=== PATIENT | male | born 1965 | race Caucasian/White ===

== ENCOUNTER 2019-08-26 07:32 | Outpatient (CLI) | payer BC ==
--- NOTE | 2019-08-26 09:28 | MRI ---
MRI LEFT SHOULDER WITHOUT CONTRAST: HISTORY: Impingement syndrome of left shoulder, M75.42. COMPARISON: None. FINDINGS: Biceps tendon: The extraarticular biceps tendon is highly tendinotic. There is subluxation through tears of the superior glenohumeral ligament and carpal humeral ligamentous portions of the biceps pul lissy as well as deep undersurface fiber partial tearing of the subscapularis tendon. The intraarticular tendon is mildly tendinotic. Labrum: There is maceration of the posterior inferior labrum. There is intrasubstance tear throughout the an terior inferior, inferior, posterior inferior, posterior, and posterior superior labrum. There is bl unting and volume loss of the superior labrum and substance tear. Rotator cuff: Very high-grade partial articular surface tear, anterior 8 mm supraspinatus tendon at the footprint, 80-90% thickness. This tear propagates into the myotendinous junction while the remainder of the sup raspinatus tendon with interstitial-type delamination propagating to the infraspinatus tendon. The i nfraspinatus tendon beside the interstitial delamination does not appear to have a bursal articular s urface component. There is near-complete rupture of the superior 10-15% fibers of the subscapularis tendon which is mac erated. The caudal fibers are intact. Muscles: There is no significant muscle atrophy. No edema. BONES: There is moderate degenerative disease of the acromioclavicular joints. There is normal glenoid vers ion. There is a posterior superior glenoid osteophyte with subcortical cyst. Large volume sclerosis and osteophyte formation of the posterior of the sphenoid rim. Soft tissues: Moderate subacromial subdeltoid bursa effusion. IMPRESSION: 1. Circumferential intrasubstance labral tear with posterior labral maceration. There is associated posterior glenoid osteophyte formation with subcortical cyst and sclerosis. 2. Mild chondral fraying of the posterior glenoid without any full-thickness fissure is appreciated. 3. High-grade 80-90% articular surface partial tearing of the anterior 8 mm-1 cm supraspinatus tendo n at the footprint with propagation along the posterior fibers supraspinatus tendon with an interstit ial oblique course extending to the anterior fibers of infraspinatus tendon. The infraspinatus tendo n has only an interstitial component without bursal or articular surface involvement. 4. High-grade tearing and partial rupture of the superior 15-20% fibers subscapularis tendon from th e footprint with intact caudal fibers. 5. A reactive subacromial subdeltoid bursa effusion. This could be due to leaking of fluid from the glenohumeral joint through a small full-thickness perforation of the anterior fibers supraspinatus t endon. POS: HOME
== END 2019-08-26 07:33 | disposition home or self-care (01) ==
LOC: TBSIIMAG 07:32
PROVIDERS: ATTEND Orthopaedic Surgery
DX: M75.42 Impingement syndrome of left shoulder (principal); S43.402A Unspecified sprain of left shoulder joint, initial encounter; M25.712 Osteophyte, left shoulder; M25.812 Other specified joint disorders, left shoulder; S46.812A Strain of other muscles, fascia and tendons at shoulder and upper arm level, left arm, initial encounter; M25.412 Effusion, left shoulder

== ENCOUNTER 2019-09-30 10:10 | Outpatient (CLI) | payer BC, OTHER ==
[2019-09-30 16:14] LABS: #Basophils 0.1 thou/uL (0.0-0.2); #Eosinphils 0.2 thou/uL (0.0-0.7); #Lymphocytes 3.1 thou/uL (1.20-3.40); #Monocytes 0.8 thou/uL (0.11-0.59); #Neutrophils 4.1 thou/uL (1.40-6.50); %Basophils 1.1 % (0.0-1.0); %Eosinophils 1.9 % (0.0-10.0); %Lymphocytes 37.5 % (21.0-51.0); %Neutrophils 49.5 % (42.0-75.0); Hemoglobin 15.8 g/dL (14.0-18.0); Mean Corpuscular HGB CONC 33.7 g/dL (32.0-36.0); Mean Corpuscular Hemoglobin 29.5 pg (27.0-31.0); Mean Corpuscular Volume 87.5 fL (78.0-98.0); Platelet Count 246 thou/uL (130-400); RBC Distribution Width 11.7 % (11.5-14.5); Red Blood Cell (RBC) Count 5.34 mill/uL (4.70-6.10); White Blood Cell (WBC) Count 8.4 thou/uL (4.8-10.8)
[2019-09-30 16:36] LABS: Anion Gap 15 mmol/L (10-20); BUN (Urea Nitrogen) 17 mg/dL (8.4-25.7); Calc. Creatinine Clearance 0 mL/min (70-130); Calcium 9.3 mg/dL (7.8-10.44); Carbon Dioxide 23 mmol/L (22-29); Chloride 103 mmol/L (98-107); Estimated GFR-MDRD 71; Glucose 251 mg/dL (70-105); Sodium 137 mmol/L (136-145)
[2019-10-01 10:10] LABS: SARS-CoV-2 MS2 Positive; SARS-CoV-2 N Gene Negative; SARS-CoV-2 S Gene Negative; SARS-CoV-2 orf1ab Negative
--- NOTE | 2019-10-01 12:47 | EKG ---
Test Reason : Blood Pressure : / mmHG Vent. Rate : 071 BPM Atrial Rate : 071 BPM P-R Int : 136 ms QRS Dur : 084 ms QT Int : 366 ms P-R-T Axes : 022 041 -02 degrees QTc Int : 397 ms Normal sinus rhythm Normal ECG Confirmed by DR. Ashley MCGINNIS ([id number]) on 10/01/2019 12:46:44 PM Referred By: IERO Confirmed By:DR. Ashley MCGINNIS
== END 2019-09-30 10:11 | disposition home or self-care (01) ==
LOC: LABBT 10:10
PROVIDERS: ATTEND Orthopaedic Surgery
DX: Z01.818 Encounter for other preprocedural examination (principal); Z11.59 Encounter for screening for other viral diseases; M75.102 Unspecified rotator cuff tear or rupture of left shoulder, not specified as traumatic
CPT/HCPCS: 80048; 85025; 87635; 93005; 93010; U0003

== ENCOUNTER 2019-10-02 07:34 | Day surgery (SDC) | payer BC ==
[2019-09-30 15:40] VITALS: BMI 35.2
[2019-10-02] MEDS ORDERED: Midazolam HCl 2 mg/2 ml Vial ONE (08:10)
[2019-10-02] MEDS ORDERED: Fentanyl 100 MCG/2 ML VIAL ONE ×2 (08:10→10:16)
[2019-10-02] MEDS ORDERED: Lidocaine 1% w/Epinephrine 1:100K 20 ML VIAL ONE (10:49)
[2019-10-02] MEDS ORDERED: Ketorolac Tromethamine 30 MG/ML VIAL ONE (11:27)
[2019-10-02] MEDS ORDERED: Rocuronium Bromide 10 MG/ML (10ML VIAL) ONE (11:27)
[2019-10-02] MEDS ORDERED: Ropivacaine 0.5% HCl/PF (150 MG/30 ML VIAL) ONE (11:27)
[2019-10-02] MEDS ORDERED: Metoclopramide HCl 10 MG/2 ML VIAL ONE (11:27)
[2019-10-02] MEDS ORDERED: Lidocaine 1% PF 5 ML VIAL ONE (11:27)
[2019-10-02] MEDS ORDERED: Succinylcholine Chloride 20 MG/ML 10 ml SYRINGE FS ONE (11:27)
[2019-10-02] MEDS ORDERED: Ondansetron PF 4 MG/2 ML Vial ONE (11:27)
[2019-10-02] MEDS ORDERED: PROPOFOL 200 MG/20 ML VIAL ONE (11:27)
[2019-10-02] MEDS ORDERED: Fentanyl 100 MCG/2 ML VIAL IV PRN (12:42)
[2019-10-02] MEDS ORDERED: Ropivacaine 0.2% 550 ML 550 ML NERVE BLCK SCH (12:42)
[2019-10-02] MEDS ORDERED: Zolpidem Tartrate 5 MG TAB PO PRN (12:42)
[2019-10-02] MEDS ORDERED: Ondansetron PF 4 MG/2 ML Vial IVP PRN (12:42)
[2019-10-02] MEDS ORDERED: Promethazine HCl 25 MG/ML VIAL IM PRN (12:42)
[2019-10-02] MEDS ORDERED: Acetaminophen 325 MG TAB PO PRN (12:42)
--- NOTE | 2019-10-03 09:19 | OP ---
DATE OF PROCEDURE: 10/02/2019 PREOPERATIVE DIAGNOSES: 1. Left shoulder with superior labral tear going up into the biceps leading to biceps tendon tearing as well as instability. 2. Rotator cuff tear. POSTOPERATIVE DIAGNOSES: 1. Left shoulder with superior labral tear going up into the biceps leading to biceps tendon tearing as well as instability. 2. Rotator cuff tear. PROCEDURES PERFORMED: 1. Left shoulder arthroscopy with arthroscopic rotator cuff repair. 2. Left shoulder open biceps tenodesis. TELEPHONE EXCHANGE OPERATOR: Luis Saini PA-C ESTIMATED BLOOD LOSS: Around 30 mL. COMPLICATIONS: None. ANESTHESIA: He had general anesthetic. He also had a preoperative block. IMPLANTS: On the shoulder, we used a triple-loaded titanium rotator cuff anchor followed by a 4.75 BioComposite SwiveLock for double row cuff repair. We used a 7 x 23 BioComposite Bio-Tenodesis screw for biceps tenodesis. DISPOSITION: He did go to recovery room in stable condition. INDICATIONS: Mr. Pepe is an active 54-year-old male, who has been having problems with the left shoulder for quite some time. MRI found him to have a significant labral tear leading to biceps tendon tearing and instability as well as a rotator cuff tear. At this time, he opted to have shoulder surgery. DESCRIPTION OF PROCEDURE: After all appropriate consent forms were explained and signed, he was taken to the operative room and at this time was given general anesthetic. Once the level of anesthesia was appropriate, he was rolled into the right lateral decubitus position with all bony prominences well padded. Axillary roll was placed in the right axilla and the garcia bag was inflated to hold in this position. The arm was then taken through full range of motion and suspended with 15 pounds in standard arthroscopic fashion. The left shoulder and upper extremity were then prepped and draped in standard surgical fashion. The bony anatomical landmarks were then drawn out and the subacromial space was infiltrated with lidocaine with epinephrine. Posterior portal was then established. Scope was placed into the shoulder joint. Anterior working portal was then made using a needle localization technique. Diagnostic arthroscopy commenced in the glenohumeral joint. The articular surface of the humeral head and glenoid were overall in good condition. The patient did have some significant labral tearing including a large chunk of the superior labrum right at the biceps insertion point that had flipped on its hinge anteriorly and looked like another piece of floating tissue in the anterior shoulder just in front of the anterior labrum. The biceps tendon itself was torn approximately 30% of the way through the tendon, but on pulling the tendon into the joint, there was some good tendon as soon as the long head of the biceps left the shoulder joint region. Therefore, it was decided to perform an open biceps tenodesis. The superior labrum and posterior labrum were also found to be degenerative. Shaver was introduced to debride everything at this time. There was some significant synovitic changes superior to the superior labrum as well as the biceps and brisk venous bleeding was coagulated with the SERFAS energy at this time. We did also find the rotator cuff tear and debrided it from its anterior surface. There were no loose bodies in the axillary pouch. Subscapularis was found to be intact. At this time, an 18-gauge needle was used to coates the biceps tendon and we placed a stitch through it. The arthroscopic scissors were used to remove the tendon off the superior labrum. This area was then debrided with a shaver one last time. At this time, scope was removed and repositioned in subacromial space. Lateral working portal was made. A PassPort was placed. At this time, I removed the bursa to gain access to the underlying cuff. There was not too much bursa to remove. We did not feel we needed to do any significant bony decompression and thus none was performed. At this time, rotator cuff tear was apparent. The edges were freshened up with a shaver. The SERFAS and the shaver were used to remove soft tissue off its bony insertion site. At this time, we decided this small tear would require a double row repair. The needle was then used to place an accessory stab incision to place our anchor into the tuberosity bone. We then pulled our sutures out the front cannula. We then placed these from front to back in mattress fashion for cuff repair. The last set of sutures, we placed a simple stitch and tied this. We then tied our 2 other sets of sutures and then punched and placed these 4 sutures into a 4.75 SwiveLock for a double-row repair. Arm was taken through range of motion. Tear was found to be stable and closed. At this time, we then removed the scope and drained the shoulder. Open incision was made to perform our biceps tenodesis. This was done with a 15 blade. Bovie was used to clear any brisk venous bleeding. We then opened our deltoid fascia sharply and finger dissection was used to dissect the deltoid in line with its fibers. We got down to the underlying transverse humeral ligament, this was opened up. The tendon was pulled out to the wound. All brisk venous bleeding was coagulated. The bicipital groove was cleaned down. We then sewed our biceps tendon in standard fashion, followed by removing the intra-articular diseased portion of the tendon. We then placed our guidewire reamed our hole, and we then fixated this with a 7 x 23 BioComposite Bio-Tenodesis screw in standard fashion. Sutures were tied over top of this and once this was done, we thoroughly irrigated and dried. We closed our deltoid fascial sleeve with running Vicryl. 2-0 Vicryl and sutures were then used to close the small incision as well as our portals. At this time, a bulky sterile dressing was applied to the left shoulder. The patient was awakened and was taken to recovery room in stable condition. All counts were correct at the end of the case and he did receive preoperative IV antibiotics. Job ID: [id number] [id number]
== END 2019-10-02 16:23 | disposition home or self-care (01) ==
LOC: SDC 07:34
PROVIDERS: ATTEND Orthopaedic Surgery
PROC: 0LQ24ZZ Repair Left Shoulder Tendon, Percutaneous Endoscopic Approach (ICD-10-PCS; principal; 2019-10-02)
PROC: 0LS40ZZ Reposition Left Upper Arm Tendon, Open Approach (ICD-10-PCS; principal; 2019-10-02)
DX: M75.102 Unspecified rotator cuff tear or rupture of left shoulder, not specified as traumatic (principal); S43.432A Superior glenoid labrum lesion of left shoulder, initial encounter; E11.9 Type 2 diabetes mellitus without complications; E78.1 Pure hyperglyceridemia; E78.5 Hyperlipidemia, unspecified
CPT/HCPCS: 36416; A4306; C1713; J0690; J1885; J2001; J2250; J2405; J2704; J2765; J2795; J3010

== ENCOUNTER 2021-06-01 11:17 | Outpatient (CLI) | payer BC | END 2021-06-01 11:18 | disposition home or self-care (01) | LOC: BICRAD 11:17 | PROVIDERS: ATTEND Family Medicine | DX: R05.3 Chronic cough (principal) | CPT/HCPCS: 71046 ==

== ENCOUNTER 2022-06-27 14:52 | Outpatient (CLI) | payer BC | END 2022-06-27 14:53 | disposition home or self-care (01) | LOC: SCSMRI 14:52 | PROVIDERS: ATTEND Orthopaedic Surgery | DX: S46.011A Strain of muscle(s) and tendon(s) of the rotator cuff of right shoulder, initial encounter (principal); S46.811A Strain of other muscles, fascia and tendons at shoulder and upper arm level, right arm, initial encounter; S43.431A Superior glenoid labrum lesion of right shoulder, initial encounter ==

== ENCOUNTER 2022-07-14 09:07 | Outpatient (CLI) | payer BC ==
[2022-07-14 10:32] LABS: #Basophils 0.1 10x3/uL (0.0-0.2); #Eosinphils 0.4 10x3/uL (0.0-0.5); #Monocytes 0.7 10x3/uL (0.0-1.1); %Basophils 1.2 % (0.0-2.0); %Lymphocytes 31.4 % (18.0-47.0); %Monocytes 9.1 % (0.0-10.0); %Neutrophils 52.8 % (40.0-75.0); Hemoglobin 16.2 g/dL (13.5-17.5); Mean Corpuscular HGB CONC 34.1 g/dL (32.0-36.0); Mean Corpuscular Hemoglobin 28.9 pg (27.0-33.0); Mean Corpuscular Volume 84.8 fl (81.2-95.1); Platelet Count 254 10x3/uL (150-450); White Blood Cell (WBC) Count 7.6 10x3/uL (3.5-10.5)
[2022-07-14 10:37] LABS: Anion Gap 14 mmol/L (10-20); BUN (Urea Nitrogen) 18 mg/dL (8.4-25.7); Calc. Creatinine Clearance 0 mL/min (70-130); Calcium 9.7 mg/dL (7.8-10.44); Carbon Dioxide 23 mmol/L (22-29); Chloride 104 mmol/L (98-107); Estimated GFR 104; Glucose 327 mg/dL (70-105); Potassium 4.5 mmol/L (3.5-5.1); Sodium 136 mmol/L (136-145)
== END 2022-07-14 09:08 | disposition home or self-care (01) ==
LOC: LABBT 09:07
PROVIDERS: ATTEND Orthopaedic Surgery
DX: Z01.818 Encounter for other preprocedural examination (principal); S46.011A Strain of muscle(s) and tendon(s) of the rotator cuff of right shoulder, initial encounter
CPT/HCPCS: 71046; 80048; 85025; 93005; 93010

== ENCOUNTER 2022-07-19 07:20 | Day surgery (SDC) | payer BC ==
[2022-07-17 15:29] VITALS: BMI 35.2
[2022-07-19] MEDS ORDERED: Midazolam HCl 2 mg/2 ml Vial ONE (07:57)
[2022-07-19] MEDS ORDERED: Ropivacaine 0.5% HCl/PF (150 MG/30 ML VIAL) ONE (07:57)
[2022-07-19] MEDS ORDERED: Fentanyl 100 MCG/2 ML VIAL ONE (07:57)
[2022-07-19] MEDS ORDERED: Vancomycin (BATCH) 1.5 GRAM/300 ML BAG ONE (08:26)
[2022-07-19] MEDS ORDERED: Fentanyl 100 MCG/2 ML VIAL SLOW IVP PRN (08:52)
[2022-07-19] MEDS ORDERED: Zolpidem Tartrate 5 MG TAB PO PRN (09:00)
[2022-07-19] MEDS ORDERED: Ondansetron PF 4 MG/2 ML Vial IVP PRN (09:00)
[2022-07-19] MEDS ORDERED: traMADol HCl 50 MG TAB PO PRN ×2 (09:00)
[2022-07-19] MEDS ORDERED: Ketorolac Tromethamine 30 MG/ML VIAL IVP PRN (09:00)
[2022-07-19] MEDS ORDERED: HYDROcodone/Acetaminophen 10/325 mg Tablet PO PRN ×2 (09:00)
[2022-07-19] MEDS ORDERED: Ropivacaine 0.2% 550 ML 550 ML NERVE BLCK SCH (09:00)
[2022-07-19] MEDS ORDERED: Promethazine HCl 25 MG/ML VIAL IM PRN (09:00)
[2022-07-19] MEDS ORDERED: Insulin Regular 300 UNITS/3 ML VIAL ONE (09:41)
[2022-07-19] MEDS ORDERED: CEFAZOLIN 2 GM VIAL ONE (09:43)
[2022-07-19] MEDS ORDERED: Sodium Chloride 0.9% 100 ML ONE (09:43)
[2022-07-19] MEDS ORDERED: HYDROmorphone 2 MG/ML VIAL ONE (09:46)
[2022-07-19] MEDS ORDERED: fentaNYL PF 100 MCG/2 ML SYRINGE ONE (09:46)
[2022-07-19] MEDS ORDERED: Phenylephrine 10 MG/ML VIAL ONE (09:46)
[2022-07-19] MEDS ORDERED: Lidocaine 1% PF 5 ML VIAL ONE (10:00)
[2022-07-19] MEDS ORDERED: Ondansetron PF 4 MG/2 ML Vial ONE (10:00)
[2022-07-19] MEDS ORDERED: Glycopyrrolate 0.2 MG/ML 5 ML SYRINGE ONE (10:00)
[2022-07-19] MEDS ORDERED: PROPOFOL 200 MG/20 ML VIAL ONE (10:00)
[2022-07-19] MEDS ORDERED: Metoclopramide HCl 10 MG/2 ML VIAL ONE (10:00)
[2022-07-19] MEDS ORDERED: Rocuronium Bromide 10 MG/ML (10ML VIAL) ONE (10:00)
[2022-07-19] MEDS ORDERED: NEOSTIGMINE 3 MG/3 ML SYR 3 MG/3 ML SYRINGE ONE (10:00)
== END 2022-07-19 15:05 | disposition home or self-care (01) ==
LOC: SDC 07:20
PROVIDERS: ATTEND Orthopaedic Surgery
PROC: 0LS30ZZ Reposition Right Upper Arm Tendon, Open Approach (ICD-10-PCS; principal; 2022-07-19)
PROC: 0RHJ04Z Insertion of Internal Fixation Device into Right Shoulder Joint, Open Approach (ICD-10-PCS; principal; 2022-07-19)
PROC: 0RNJ0ZZ Release Right Shoulder Joint, Open Approach (ICD-10-PCS; principal; 2022-07-19)
PROC: 0LM10ZZ Reattachment of Right Shoulder Tendon, Open Approach (ICD-10-PCS; principal; 2022-07-19)
DX: S46.011A Strain of muscle(s) and tendon(s) of the rotator cuff of right shoulder, initial encounter (principal); S46.211A Strain of muscle, fascia and tendon of other parts of biceps, right arm, initial encounter; M25.811 Other specified joint disorders, right shoulder; E78.1 Pure hyperglyceridemia; E11.9 Type 2 diabetes mellitus without complications; I10 Essential (primary) hypertension; Z79.4 Long term (current) use of insulin; Z79.82 Long term (current) use of aspirin; Z79.84 Long term (current) use of oral hypoglycemic drugs; Z79.899 Other long term (current) drug therapy; Z88.8 Allergy status to other drugs, medicaments and biological substances; X50.0XXA Overexertion from strenuous movement or load, initial encounter
CPT/HCPCS: 36416; A4306; C1713; J1170; J1815; J2250; J2370; J2405; J2704; J2765; J2795; J3010; J3370; J3490